=== PATIENT | female | born 2005 | race African-American/Black ===

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

== ENCOUNTER 2024-07-28 10:21 | Emergency (ER) | payer SELFPAY ==
[2024-07-28 10:23] VITALS: BP 103/65; PULSE 98; RESP 16; TEMP 36.6; O2SAT 99; BMI 24.3
--- NOTE | 2024-07-28 10:34 | EKG12_ITS ---
Test Reason : PLACEMENT Blood Pressure : / mmHG Vent. Rate : 068 BPM Atrial Rate : 068 BPM P-R Int : 126 ms QRS Dur : 066 ms QT Int : 364 ms P-R-T Axes : 056 009 039 degrees QTc Int : 387 ms Normal sinus rhythm Normal ECG Confirmed by PAMELA BARNETT, BLAISE ([id number]), editor school photograph VIANNEY AGUDELO ([id number]) on 07/29/2024 7:35:36 AM Referred By: Confirmed By:BLAISE SANTIAGO MD
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
[2024-07-28 11:06] LABS: Absolute Lymphocyte Count 1.28 X10^3/uL (0.83-4.51); Basophil# 0.06 X10^3/uL; Basophil% 0.5 % (0-1); Eosinophil# 0.02 X10^3/uL; Eosinophils% 0.2 % (0-5); Hematocrit 42.1 % (37-47); Hemoglobin 14.1 g/dL (12.0-15.0); Lymphocyte # 1.28 X10^3/ul (0.83-4.51); Lymphocyte % 11.6 % (19-41); Mean Corp Hgb Conc 33.5 g/dL (32-36); Mean Corpuscular Hgb 30.8 pg (27.0-32.0); Mean Corpuscular Volume 91.9 fL (81-99); Mean Platelet Vol. 8.9 fl (6.2-12.0); Monocyte# 0.61 X10^3/uL; Monocyte% 5.5 % (0-10); NRBC Flagged by Analyzer 0 % (0-5); Neutrophil # 9.02 X10^3/uL (2.7-7.7); Neutrophil % 81.7 % (47-70); Platelet Count 405 K/mm3 (150-450); RBC Distribution Width CV 12.1 % (11.6-14.6); RBC Distribution Width SD 40.7 fl (35.1-43.9); Red Blood Count 4.58 M/mm3 (4.2-5.4); White Blood Count 11.1 K/mm3 (4.4-11.0)
--- NOTE | 2024-07-28 11:12 | ED.RN ---
clothes and belongings removed from room and placed in bag. patient placed in gown. sitter at bedside
[2024-07-28 11:24] LABS: Internal QC Validated? YES +Cl - CLEAR BKGD; Pregnancy, Serum, hCG Quali. NEGATIVE Negative
--- NOTE | 2024-07-28 11:25 | ED.RN ---
attempted to call legal guardian for consent Eva. she did not answer and unable to leave voicemail. phone number [phone]
[2024-07-28 11:26] LABS: Alcohol, Blood (Medical)-Serum < 3.0 mg/dL
[2024-07-28 11:46] LABS: ALB/GLOB Ratio 1.1 RATIO (0.9-2.4); AST(SGOT) 12 U/L (15-37); Alanine Aminotransfer ALT/SGPT 14 U/L (13-56); Albumin, Serum 4.4 g/dL (3.2-5.0); Alkaline Phosphatase 68 U/L (45-117); Anion Gap 13 (5-15); BUN 14 mg/dL (7-18); BUN/Creat Ratio 16.8 RATIO (10-20); Calcium,Total 9.4 mg/dL (8.5-10.1); Chloride 101 mmol/L (98-107); Creatinine, Serum 0.83 mg/dL (0.55-1.02); EST Glomerular Filtration Rate 93 mL/min (>60); Est Glom Filt Rate - Afr Amer 112 mL/min (>60); Estimated Creatinine Clearance 89.44 ml/min; Glucose 72 mg/dL (74-106); Potassium 3.4 mmol/L (3.5-5.1); Protein, Total 8.4 g/dL (6.4-8.2); Sodium Level 136 mmol/L (136-145)
[2024-07-28 11:47] LABS: Amphetamine Urine VISTA NEGATIVE (<1000 ng/mL); Barbiturate Urine VISTA NEGATIVE (< 200 ng/mL); Benzodiazepine Urine VISTA NEGATIVE (< 200 ng/mL); Cocaine Urine VISTA NEGATIVE (< 300 ng/mL); Ecstacy Urine VISTA NEGATIVE (< 500 ng/mL); Methadone Urine VISTA NEGATIVE (< 300 ng/mL); PCP Urine VISTA NEGATIVE (< 25 ng/mL); THC Urine VISTA POSITIVE (< 50 ng/mL); Vista UDS pH Range 5
--- NOTE | 2024-07-28 11:59 | NURSING ---
FAXED CHART TO CRISIS
[2024-07-28 14:02] VITALS: BP 105/76; PULSE 91; RESP 12; TEMP 36.6; O2SAT 97
== END 2024-07-28 14:03 | disposition home or self-care (01) ==
PROVIDERS: Emergency Provider Emergency Medicine; PCP Family Medicine; Visit Provider Emergency Medicine
DX: F32.A Depression, unspecified (principal); R45.851 Suicidal ideations; F17.290 Nicotine dependence, other tobacco product, uncomplicated
CPT/HCPCS: 80053; 80307; 82077; 84703; 85025; 93005; 99283

== ENCOUNTER 2024-08-22 08:36 | Emergency (ER) | payer SELFPAY ==
[2024-08-22 08:37] VITALS: BP 153/90; PULSE 78; RESP 15; TEMP 36.8; O2SAT 96; BMI 24.3
--- NOTE | 2024-08-22 08:59 | EDS_ITS ---
HPI HPI - Female History of Present Illness Chief Complaint: Vag Bleeding Informant: patient Narrative Narrative: 19-year-old female presenting to the emergency room with abnormal vaginal bleeding. Patient states that her menstrual cycles have always been very regular. She states that she started lightly bleeding for 9 days about 2 weeks prior to her normal cycle. She states that she had about 4 days off without any bleeding and then when her period should have, she started bleeding more heavily and is having cramps. She called her primary care doctor who did not have any immediate openings for visitation and her mom suggested that she come to emergency. 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 She does not take any hormonal supplementation. No history of ovarian cyst or bleeding disorders. [facility] Medical History ADHD Home Medications ?Medication ?Instructions ?Recorded ?Last Taken ?Type NK 02/05/22 Unknown History Allergy/AdvReac Type Severity Reaction Status Date / Time pineapple Allergy Hives Verified 08/22/24 08:39 Social History Smoking Status: Current some day smoker tobacco type: e-cigarettes ROS ROS ED Constitutional Constitutional ED: Denies chills, fever(s) or weight loss Eyes Eyes: Denies change in vision or diplopia ENT ENT ED: Denies ear pain, rhinorrhea or sore throat Cardiovascular Cardiovascular: Denies chest pain, orthopnea, palpitations or racing heartbeat Respiratory/Chest Respiratory/Chest: Denies cough, dyspnea or orthopnea Gastrointestinal Gastrointestinal: Denies abdominal pain, diarrhea, nausea or vomiting Genitourinary Genitourinary ED: Reports other Details: See history of present illness ; Denies dysuria, hematuria or urinary frequency Musculoskeletal Musculoskeletal: Denies arthralgias or myalgias Integumentary Denies abscess or rash Neurologic Neurologic: Denies headache(s) or weakness Psychiatric Psychiatric: Denies anxiety, depression, suicidal ideation or suicidal thoughts Endocrine Endocrinology: Denies polydipsia, polyphagia or polyuria Allergic/Immunologic Allergic/Immunologic ED: Denies mouth swelling, tongue swelling or urticaria EXAM Physical Exam Const Vital Signs: 08/22/24 08:37 Temperature 98.2 F Temperature Source Oral Pulse Rate 78 Respiratory Rate 15 Blood Pressure 153/90 H Blood Pressure Mean 111 Pulse Ox 96 Oxygen Delivery Method Room Air Positive well nourished and well developed General Appearance ED: well developed and NAD HEENT Reports normocephalic, head/scalp atraumatic and moist mucous membranes Eyes PERRL and EOMs intact bilaterally Neck no lymphadenopathy, supple and no JVD Resp normal respiratory effort and clear to auscultation bilaterally Cardio regular rate, regular rhythm and no murmurs GI normal to inspection, nondistended, normoactive bowel sounds and non-tender Palpation: soft Back/Spine no CVA tenderness and normal ROM Extremity normal to inspection General Extremety ED: Negative for edema General Extremity: Negative for edema Neuro oriented x3 and CN's II-XII intact bilaterally Sensorium / Orientation: alert Motor Exam: strength 5/5 throughout Psych mental status grossly normal Mood & Affect: Negative for depressed or tearful Skin no rashes or lesions noted and no wounds MDM MDM MDM Narrative Medical decision making narrative: Differential diagnosis includes dysfunctional uterine bleeding and menorrhagia hormonal imbalance ovarian cyst uterine fibroid uterine structural abnormalities anemia miscarriage White count 9.8 hemoglobin 13.8 with platelet count of 303. test is negative. Pelvic ultrasound did not demonstrate any significant structural abnormalities. Patient appears hemodynamically stable. I am going to have her follow-up with [facility]. Return if worsening or concerns History & Record Review Discussion w/independent historian: Patient Lab Data Attestation: I reviewed the patient's lab results. Labs: Laboratory Results - last 24 hr 08/22/24 09:12 WBC 9.8 RBC 4.52 Hgb 13.8 Hct 42.1 MCV 93.1 MCH 30.5 MCHC 32.8 RDW Std Deviation 43.8 RDW Coeff of Daniel 12.8 Plt Count 303 MPV 8.9 Immature Gran % (Auto) 0.400 Neut % (Auto) 71.4 H Lymph % (Auto) 19.6 [place] % (Auto) 5.3 Eos % (Auto) 2.9 Baso % (Auto) 0.4 Absolute Neuts (auto) 7.0 Absolute Lymphs (auto) 1.92 Nucleated RBC % 0 Serum , Qual NEGATIVE Radiography Diagnostic Testing: Clinical Impression(s) from Imaging Studies Transvaginal US 08/22/24 09:28 IMPRESSION: Normal female pelvis. Electronically Signed: Ayush Damian MD at 10:55 EDT , Discharge Plan Triage Chief Complaint: Vag Bleeding ED Provider: Tino Herrera Dx/Rx/DC Orders Clinical Impression: DUB (dysfunctional uterine bleeding) Instructions: ED Dysfunctional Uterine Bleeding Prescriptions: No Action NK Primary Care Provider: Jem Mariscal Referrals: Jem Mariscal MD [Primary Care Provider] - Trinh Patel CNM [Med Staff - Adv Practice Prof] - As soon as possible Print Language: Sinhala Disposition Disposition: Home, Self Care
[2024-08-22 09:22] LABS: Absolute Lymphocyte Count 1.92 X10^3/uL (0.83-4.51); Basophil% 0.4 % (0-1); Eosinophils% 2.9 % (0-5); Hematocrit 42.1 % (37-47); Hemoglobin 13.8 g/dL (12.0-15.0); Lymphocyte # 1.92 X10^3/ul (0.83-4.51); Lymphocyte % 19.6 % (19-41); Mean Corp Hgb Conc 32.8 g/dL (32-36); Mean Corpuscular Hgb 30.5 pg (27.0-32.0); Mean Corpuscular Volume 93.1 fL (81-99); Mean Platelet Vol. 8.9 fl (6.2-12.0); Monocyte% 5.3 % (0-10); Neutrophil % 71.4 % (47-70); Platelet Count 303 K/mm3 (150-450); RBC Distribution Width CV 12.8 % (11.6-14.6); RBC Distribution Width SD 43.8 fl (35.1-43.9); Red Blood Count 4.52 M/mm3 (4.2-5.4); White Blood Count 9.8 K/mm3 (4.4-11.0)
[2024-08-22 09:23] LABS: Basophil# 0.04 X10^3/uL; Eosinophil# 0.28 X10^3/uL; Monocyte# 0.52 X10^3/uL; NRBC Flagged by Analyzer 0 % (0-5)
[2024-08-22 09:27] LABS: Internal QC Validated? YES +Cl - CLEAR BKGD; Pregnancy, Serum, hCG Quali. NEGATIVE Negative; Record Kit Lot#, Serum Preg. HCG0000772476
--- NOTE | 2024-08-22 09:28 | US_ITS ---
STUDY: ULTRASOUND OF THE FEMALE PELVIS - REASON FOR EXAM: Female, 19 years old. DUB LMP: August 05, 2024 TECHNIQUE: Transvaginal TECHNICAL QUALITY: Adequate. COMPARISON: None. FINDINGS: The uterus is anteverted and is in a midline position. The uterus measures 5.9 x 3.9 x 3.4 cm. Normal uterine cervix. The endometrium measures 5 mm in thickness, and is hyperechoic. There is no demonstrated endometrial mass. There is no demonstrated myometrial mass. I.U.D. - The patient does not have an I.U.D. The right ovary is visualized. The right ovary measures 3.3 x 2.7 x 2.0 cm. There is no right ovarian cyst or ovarian mass. There is no visualized right adnexal mass or complex lesion. There is normal arterial and normal venous vascularity. The left ovary is visualized. The left ovary measures 2.7 x 2.3 x 1.5 cm. There is no left ovarian cyst or ovarian mass. There is no visualized left adnexal mass or complex lesion. There is normal arterial and normal venous vascularity. There is mild fluid in the cul-de-sac. US/Transvaginal Non- IMPRESSION: Normal female pelvis. Electronically Signed: Ayush Damian MD at 10:55 EDT ,
[2024-08-22 11:46] VITALS: BP 132/88; PULSE 74; RESP 16; TEMP 36.6; O2SAT 99
== END 2024-08-22 11:46 | disposition home or self-care (01) ==
PROVIDERS: Emergency Provider Emergency Medicine; PCP Family Medicine; Visit Provider Emergency Medicine
DX: N93.8 Other specified abnormal uterine and vaginal bleeding (principal); F17.290 Nicotine dependence, other tobacco product, uncomplicated
CPT/HCPCS: 76830; 84703; 85025; 99283; A4216

== ENCOUNTER 2024-09-01 17:43 | Emergency (ER) | payer SELFPAY ==
[2024-09-01 17:44] VITALS: BP 151/110; PULSE 100; RESP 16; TEMP 36.1; O2SAT 100; BMI 24.6
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
[2024-09-01 19:47] VITALS: BP 136/77; PULSE 71; RESP 16; O2SAT 98
[2024-09-01 20:14] LABS: Internal QC Validated? YES +Cl - CLEAR BKGD; Pregnancy, Serum, hCG Quali. NEGATIVE Negative
[2024-09-01 21:00] VITALS: BP 130/77; PULSE 79; RESP 16; O2SAT 98
[2024-09-01 22:40] VITALS: BP 124/59; PULSE 62; RESP 16; TEMP 36.4; O2SAT 98
== END 2024-09-01 22:41 | disposition home or self-care (01) ==
PROVIDERS: Emergency Provider Emergency Medicine; PCP Family Medicine; Referring Provider Emergency Medicine; Visit Provider Emergency Medicine
DX: S01.511A Laceration without foreign body of lip, initial encounter (principal); V43.62XA Car passenger injured in collision with other type car in traffic accident, initial encounter; F17.290 Nicotine dependence, other tobacco product, uncomplicated
CPT/HCPCS: 70450; 70486; 72125; 84703; 99282

== ENCOUNTER 2024-11-16 21:55 | Emergency (ER) | payer MEDICAID, SELFPAY ==
[2024-11-16 21:56] VITALS: BP 134/95; PULSE 120; RESP 14; TEMP 36.8; O2SAT 98; BMI 23.8
[2024-11-16 22:00] VITALS: O2SAT 98
--- NOTE | 2024-11-16 22:34 | EDS_ITS ---
HPI HPI - URI History of Present Illness Chief Complaint: Cough Informant: patient Onset/Context/Timing Onset: Days (2-3) Context: Gradual Onset Timing: Continuous Quality: Weakness Location: Bilateral lower extremities Worsened by: - (Nothing) Relieved by: - (Sleep, fluid) Associated Symptoms Associated Symptoms: Positive for Headache, Sinus Pressure, Myalgias, Diarrhea, Shortness of Breath and Productive Cough; Negative for Nasal Congestion, Nausea, Vomiting, Chest Pain, Nonproductive cough or Hemoptysis Narrative Narrative: Patient presents with cough and congestion that has been getting worse over the past 2 to 3 days. Patient states she went to work today and felt weak in her legs. Patient states she has been coughing up some yellow and white sputum. Patient denies any fevers or chills. Patient admits to some diarrhea and some shortness of breath. Patient admits to headache and sinus pressure. Patient admits to general myalgias. Patient denies any nausea or vomiting. ROS ROS ED Constitutional Constitutional ED: Denies chills or fever(s) Eyes Eyes: Reports blurry vision; Denies change in vision ENT ENT ED: Denies rhinorrhea or sore throat Cardiovascular Cardiovascular: Denies chest pain or palpitations Respiratory/Chest Respiratory/Chest: Reports cough and dyspnea Gastrointestinal Gastrointestinal: Denies nausea or vomiting Genitourinary Genitourinary ED: Denies dysuria or hematuria Musculoskeletal Musculoskeletal: Reports myalgias; Denies back pain or neck pain Integumentary Reports rash; Denies abscess Neurologic Neurologic: Reports headache(s); Denies weakness Allergic/Immunologic Allergic/Immunologic ED: Denies mouth swelling or urticaria [facility] Medical History ADHD Home Medications ?Medication ?Instructions ?Recorded ?Last Taken ?Type NK 02/05/22 Unknown History Allergy/AdvReac Type Severity Reaction Status Date / Time pineapple Allergy Hives Verified 11/16/24 21:55 acetaminophen AdvReac Intermediate Nausea Verified 11/16/24 21:55 Surgical History no surgical history no surgical history Social History Smoking Status: Current some day smoker tobacco type: e-cigarettes EXAM Physical Exam Const Vital Signs: 11/16/24 21:56 11/16/24 22:00 Temperature 98.2 F Temperature Source Temporal Pulse Rate 120 H Respiratory Rate 14 Respiratory Effort Normal Non-Labored Respiratory Depth Normal Respiratory Pattern Normal Blood Pressure 134/95 H Blood Pressure Mean 108 Pulse Ox 98 Oxygen Delivery Method Room Air Room Air Positive well nourished and well developed General Appearance ED: well developed and NAD HEENT Reports moist mucous membranes normocephalic and atraumatic Neck supple, no meningeal signs and no JVD Resp normal respiratory effort Auscultation: wheezes expiratory wheezes and scattered wheezes Cardio Rate: regular rate Rhythm: regular rhythm GI non-tender and non-distended Palpation: soft Neuro oriented x3, CN's II-XII intact bilaterally and no sensory deficits noted Sensorium / Orientation: alert Motor Exam: strength 5/5 throughout Psych mental status grossly normal MDM MDM MDM Narrative Medical decision making narrative: Differential diagnosis includes pneumonia, bronchitis, and viral illness. Chest x-ray will be obtained to assess for pneumonia or bronchitis. COVID-19, influenza, and RSV PCR will be obtained to assess for viral illness. Lab Data Attestation: I reviewed the patient's lab results. Lab results narrative: COVID-19 PCR was reviewed and was negative. Influenza PCR was reviewed and was positive for influenza A and negative for influenza B. RSV PCR was reviewed and was negative. Radiography Chest X-Ray - ED: 2 View, Read by ED Physician, Read by Radiologist and No Acute Disease Diagnostic Testing: Clinical Impression(s) from Imaging Studies Chest X-Ray 11/16/24 22:48 IMPRESSION: No evidence of active intrathoracic disease. Electronically Signed: Lilly Hester MD at 23:53 EST , PA and lateral chest x-ray was obtained. There are 2 views. On my independent interpretation, lung ledbetter are clear. There is normal cardiac silhouette. Bony thorax is normal. There is no acute process noted. Radiologist also interpreted the x-ray and agrees. Treatment and Re-Evaluation Narrative: Nicotine cessation was discussed. Patient was advised of her findings. Patient was instructed to drink plenty of fluids. Patient was instructed to follow-up with her primary care physician in 5 to 7 days. Patient was instructed to return if worse in any way. Patient understood and was agreeable with the plan. All questions were answered. Discharge Plan Triage Chief Complaint: Cough ED Provider: Luis M Fallon Dx/Rx/DC Orders Clinical Impression: Influenza A, Nicotine vapor product user Instructions: ED Influenza (Adult) Prescriptions: No Action NK Stand Alone Forms: ED Work / School Excuse Primary Care Provider: Jem Mariscal Referrals: Jem Mariscal MD [Primary Care Provider] - 5-7 Days Print Language: Nepali Disposition Disposition: Home, Self Care
--- NOTE | 2024-11-16 22:48 | RAD_ITS ---
INDICATION: Cough EXAMINATION/TECHNIQUE: X-RAY - XR Chest 2 Views COMPARISON: No relevant prior comparison study available FINDINGS: LINES/DEVICES: None. LUNGS: No consolidation. No pneumothorax. MEDIASTINUM: Unremarkable. CARDIAC SILHOUETTE: Not enlarged. BONES AND SOFT TISSUES: No acute abnormalities. RAD/Chest PA and Lateral IMPRESSION: No evidence of active intrathoracic disease. Electronically Signed: Lilyl Hester MD at 23:53 EST ,
== END 2024-11-17 00:16 | disposition home or self-care (01) ==
PROVIDERS: Emergency Provider Emergency Medicine; PCP Family Medicine; Visit Provider Emergency Medicine
DX: J10.1 Influenza due to other identified influenza virus with other respiratory manifestations (principal); F17.290 Nicotine dependence, other tobacco product, uncomplicated
CPT/HCPCS: 71046; 87631; 99282